=== PATIENT | male | born 1970 | race African-American/Black ===

== ENCOUNTER 2018-08-18 06:51 | Inpatient (IN) | payer OTHER, MEDICAID ==
[2018-08-18] MEDS ORDERED: EPINEPHrine RACEMIC INH 0.5 ML DEYVIAL IH ONE (06:55)
[2018-08-18] MEDS ORDERED: methylPREDNISolone SOD SUCC 125 MG/2 ML VIAL IVP ONE (06:56)
--- NOTE | 2018-08-18 07:01 | EDPHY ---
H & P Stated Complaint: Sore throat, diff swallowing, R ear and jaw pain Time Seen by Provider: 08/18/18 06:55 HPI/ROS: CHIEF COMPLAINT: Right jaw near pain HISTORY OF PRESENT ILLNESS: Patient is a 48-year-old homeless man who comes to the ER by ambulance complaining of right ear and jaw pain. He states that it began about 3 days ago. He has had subjective fevers and chills. He has not had any drainage. No recent dental pain. No vision changes. No headache. He states that it is difficult to swallow. He has had runny nose and sore throat. Severity: Moderate Modifying factors: None REVIEW OF SYSTEMS: Constitutional: See HPI EENTM: See HPI Respiratory: denies: cough, shortness of breath Cardiac: denies: chest pain, irregular heart rate, lightheadedness, palpitations Gastrointestinal/Abdominal: denies: abdominal pain, diarrhea, nausea, vomiting, blood streaked stools Genitourinary: denies: dysuria, frequency, hematuria, pain Musculoskeletal: denies: joint pain, muscle pain Skin: denies: lesions, rash, jaundice, bruising Neurological: denies: headache, numbness, paresthesia, tingling, dizziness, weakness Hematologic/Lymphatic: denies: blood clots, easy bleeding, easy bruising Immunologic/allergic: denies: HIV/AIDS, transplant 10 systems reviewed and negative except as noted EXAM: GENERAL: Well-appearing, well-nourished and in no acute distress. HEAD: Atraumatic, normocephalic. EYES: Pupils equal round and reactive to light, extraocular movements intact, sclera anicteric, conjunctiva are normal. ENT: TMs normal, nares slightly congested, enlarged edematous uvula. Gargle E voice. No visible exudate. No visible peritonsillar swelling. Moist mucous membranes. Handling secretions NECK: Normal range of motion, supple without lymphadenopathy or JVD. LUNGS: Breath sounds clear to auscultation bilaterally and equal. No wheezes rales or rhonchi. HEART: Regular rate and rhythm without murmurs, rubs or gallops. ABDOMEN: Soft, nontender, normoactive bowel sounds. No guarding, no rebound. No masses appreciated. BACK: No CVA tenderness, no spinal tenderness, step-offs or deformities EXTREMITIES: Normal range of motion, no pitting or edema. No clubbing or cyanosis. NEUROLOGICAL: Cranial nerves II through XII grossly intact. Normal speech, normal gait. 5/5 strength, normal movement in all extremities, normal sensation , normal reflexes PSYCH: Normal mood, normal affect. SKIN: Warm, dry, normal turgor, no visible rashes or lesions. Source: Patient Exam Limitations: No limitations - Personal History Current Tetanus/Diphtheria Vaccine: Yes Current Tetanus Diphtheria and Acellular Pertussis (TDAP): Yes - Medical/Surgical History Hx Asthma: No Hx Chronic Respiratory Disease: No Hx Diabetes: No Hx Cardiac Disease: No Hx Renal Disease: No Hx Cirrhosis: No Hx Alcoholism: No Hx HIV/AIDS: No Hx Splenectomy or Spleen Trauma: No Other PMH: type 2 DM - Family History Significant Family History: No pertinent family hx - Social History Smoking Status: Heavy smoker Alcohol Use: Sober Constitutional: Initial Vital Signs Temperature (C) 37.1 C 08/18/18 06:55 Heart Rate 99 08/18/18 06:55 Respiratory Rate 20 08/18/18 06:55 Blood Pressure 157/88 H 08/18/18 06:55 O2 Sat (%) 95 08/18/18 06:55 O2 Delivery Mode Room Air Allergies/Adverse Reactions: No Known Allergies Allergy (Verified 08/18/18 10:17) Home Medications: Medication Instructions Recorded NK [No Known Home Meds] 08/18/18 Medical Decision Making - Diagnostics Imaging: Discussed imaging studies w/ boiler service technician Radiologist ED Course/Re-evaluation: 9:30 a.m. no obvious fluid collections on CT scan. Patient's lab work is reassuring other than an elevated white blood cell count. He denies history of allergies and allergic reactions. I suspect that he has an infectious uvulitis. Minimal response to racemic epinephrine and Solu-Medrol. Will admit for further observation and consult ENT and possibly initiate antibiotics. 9:35 a.m. I spoke with Andre for [facility] ENT who recommends adding IV Decadron. Will also add Benadryl. He recommends holding off on antibiotics at this point. They will consult. Have paged hospitalist for admission. ENT is here and has performed scope of the patient's nasopharynx. Differential Diagnosis: Partial list of the Differential diagnosis considered include but were not limited to; uvulitis, dental infection, otitis media and although unlikely based on the history and physical exam, I also considered malignant otitis, facial abscess, epiglottitis. Critical Care Time: Critical care time spent by me, Dr. Patino exclusive with this patient was 35 minutes, exclusive of the PA time exclusive of procedures. The organ system that was at risk was airway and I gave IV fluids, antibiotics, medications, consultation and admission to prevent worsening of the patient's condition - Data Points Laboratory Results: Laboratory Results 08/19/18 03:59 08/19/18 03:59 Microbiology Results: MICROBIOLOGY 08/18/18 07:30 Blood Blood Culture - Preliminary 08/18/18 07:15 Blood Blood Culture - Preliminary Medications Given: Acetaminophen (Tylenol 650/20.3ml Oral Liquid) 650 mg PO Q4HRS PRN PRN Reason: Pain, Mild/Fever, Can Take PO Stop: 02/14/19 11:10 Last Admin: 08/18/18 22:44 Dose: 650 mg Enoxaparin Sodium (Lovenox) 40 mg SC DAILY [facility] Stop: 02/15/19 08:59 Last Admin: 08/19/18 08:57 Dose: Not Given Ampicillin Sodium/Sulbactam (Sodium 3 gm/ Sodium Chloride) 100 mls @ 200 mls/ hr IV Q6HRS JALEN PRN Reason: Protocol Stop: 09/17/18 11:59 Last Admin: 08/20/18 06:25 Dose: 100 mls Insulin Human Lispro (Humalog Lispro) 0 unit SC TIDMEAL JALEN PRN Reason: Protocol Stop: 02/14/19 11:59 Last Admin: 08/19/18 18:08 Dose: 6 unit Prednisone (Prednisone) 20 mg PO DAILY JALEN Stop: 02/15/19 11:29 Last Admin: 08/19/18 12:05 Dose: 20 mg Trazodone HCl (Trazodone) 50 mg PO HS PRN PRN Reason: Sleep/Insomnia Stop: 02/16/19 00:45 Last Admin: 08/20/18 01:31 Dose: 50 mg Discontinued Medications Dexamethasone (Decadron Injection) 10 mg IVP EDNOW ONE Stop: 08/18/18 09:35 Last Admin: 08/18/18 10:14 Dose: 10 mg Dexamethasone (Decadron Injection) 4 mg IVP Q6H JALEN Stop: 02/14/19 15:59 Last Admin: 08/19/18 08:57 Dose: 4 mg Diphenhydramine HCl (Benadryl Injection) 50 mg IVP EDNOW ONE Stop: 08/18/18 09:35 Last Admin: 08/18/18 10:14 Dose: 50 mg Epinephrine (S-2) 0.5 ml IH EDNOW ONE Stop: 08/18/18 06:56 Last Admin: 08/18/18 07:06 Dose: 0.5 ml Ampicillin Sodium/Sulbactam (Sodium 3 gm/ Sodium Chloride) 100 mls @ 200 mls/ hr IV EDNOW ONE PRN Reason: Protocol Stop: 08/18/18 10:10 Last Admin: 08/18/18 11:40 Dose: Not Given Sodium Chloride (Ns) 1,000 mls @ 100 mls/hr IV CONT JALEN Stop: 02/14/19 11:14 Last Admin: 08/18/18 23:59 Dose: 1,000 mls Insulin Human Lispro (Humalog Lispro) 8 unit SC ONCE ONE Stop: 08/18/18 22:46 Last Admin: 08/18/18 22:44 Dose: 8 units Methylprednisolone Sodium Succinate (Solu-Medrol) 125 mg IVP EDNOW ONE Stop: 08/18/18 06:57 Last Admin: 08/18/18 07:34 Dose: 125 mg Point of Care Test Results: Chemistry 08/19/18 08/18/18 08/18/18 07:59 21:04 17:47 POC Glucose 201 mg/dL H mg/dL 307 mg/dL H mg/dL 298 mg/dL H mg/dL (70-100) (70-100) (70-100) 08/18/18 11:36 POC Glucose 242 mg/dL H mg/dL (70-100) Departure - Departure Disposition: [facility] Acute Clinical Impression: Uvulitis, Pharyngeal swelling Condition: Fair
[2018-08-18 07:55] LABS: PLATELET COUNT 205 10^3/uL (150-400)
[2018-08-18 08:05] LABS: INR 1.17 (0.83-1.16); PROTIME(PATIENT) 14.4 SEC (12.0-15.0)
[2018-08-18] MEDS ORDERED: IOPAMIDOL (ISOVUE-300) 100 ML BTL ONE (08:39)
[2018-08-18] MEDS ORDERED: DEXAMETHASONE 10 MG/ML VIAL IVP ONE (09:34)
[2018-08-18] MEDS ORDERED: AMPICILLIN/SULBACTAM 3 GM in NS 100 ML IV ONE (09:41)
--- NOTE | 2018-08-18 10:14 | PDCONSULT ---
Cell Room Operator Note: S: This 48yo male presented to ED with 3 days of right ear and throat pain. Pain with swallowing. States he has some increased difficulty breathing. Subjective fevers and chills. He thought he had an ear infection. No recent dental pain. No vision changes. No headache. Has had tetanus vaccine. O: Pt laying down in bed resting. Sits up without difficulty. NAD. Voice is hoarse, no stridor. Right submandibular edema, tender to palpation under angle of mandible down right ant neck. tongue was normal, good mvmt. Poor dentition. Uvula was edematous, pink in color. Ears, TM normal bilat. No fb in canal. Right canal slightly erythematous proximally. 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 Marked swelling to right pharynx and right arytenoid. Epiglottis was normal in color and size, omega shaped. Pooling of secretions throughout pharynx. A/P: Pt with marked peripharyngeal edema R>L, able to advance scope past swelling to visualize top of larynx. Vocal cords were normal in appearance and mvmt. Right arytenoid approx 2x normal size. No other masses or tumors. No clear abscess on CT. Ear pain is likely referred pain from throat. Recommend abx with good gram neg and anaerobic coverage. Dexamethasone 12mg q8h Case discussed with Dr Jacob Clark ENT
[2018-08-18] MEDS ORDERED: D50W 25 GM/50 ML SYR IVP PRN (11:09)
[2018-08-18] MEDS ORDERED: ONDANSETRON 4 MG/2 ML VIAL IVP PRN (11:11)
[2018-08-18] MEDS ORDERED: ONDANSETRON DISINTEGRATING 4 MG TAB PO PRN (11:11)
[2018-08-18] MEDS ORDERED: HYDROmorphONE/DILAUDID 1 MG/ML INJ IVP PRN (11:11)
[2018-08-18] MEDS ORDERED: ACETAMINOPHEN 325 MG TAB PO PRN (11:11)
[2018-08-18] MEDS: NS 1,000 ML IV SCH ×2 (11:40→23:59)
[2018-08-18] MEDS: AMPICILLIN/SULBACTAM 3 GM in NS 100 ML IV SCH ×3 (11:40→23:59)
[2018-08-18] MEDS: INSULIN LISPRO 100 UNIT/ML SC SCH ×2 (11:49→17:53)
--- NOTE | 2018-08-18 12:06 | GHP ---
[f rep st] HISTORY AND PHYSICAL DATE OF ADMISSION: 08/18/2018 HISTORY OF PRESENT ILLNESS: The patient is a 48-year-old gentleman with history of type 2 diabetes, who presents with several days of sore throat and some fevers or chills. He lives in [place] but was up here for what sounds like possibly a work release program and had difficulty swallowing. So he pr esented to the emergency department where neck CT revealed some prevertebral edema. He has had a lit tle bit of difficulty with his own secretions, and he has a spit cup next to the bed. He has not had hematemesis or hemoptysis. Has also had some right ear and jaw pain. He has no stridor. No air hunger. No respiratory distress. No sputum. Scattered fever and chills as mentioned previously. REVIEW OF SYSTEMS: Complete 10-point review of systems conducted, negative except as noted in the HP I. PAST MEDICAL HISTORY: Type 2 diabetes. It sounds like he does not follow it particularly carefully. He takes metformin. SOCIAL HISTORY: He does smoke cigarettes. Rare alcohol. He is listed as possibly homeless. FAMILY HISTORY: Notable for diabetes. ALLERGIES: No known drug allergies. HOME MEDICATIONS: Metformin. PHYSICAL EXAMINATION: VITAL SIGNS: Temp 37.1, blood pressure 157/88, pulse 99, breathing 20 times a minute, and 95% on room air. GENERAL: No acute distress. HEENT: Sclerae are anicteric. Orophary nx: He is crowded. He has a big tongue, crowded oropharynx. He has a hot potato voice. He was sco ped by ENT consult in the emergency department which revealed peripharyngeal edema, right greater bonny n left. Top of the larynx showed vocal cords are normal appearance and movement. NECK: Supple with out lymphadenopathy or JVD. LUNGS: Clear to auscultation bilaterally. HEART: S1, S2. Not tachyca rdic. ABDOMEN: Soft, nontender, nondistended. LOWER EXTREMITIES: Without edema. Calves are nonte nder. SKIN: Without rash. NEUROLOGIC: Exam is nonfocal. LABORATORY DATA: White count 14.5, hematocrit 47.8, platelets are 205,000. INR is 1.17. Venous lac yee is 1.4. Sodium 137, potassium 4.3, chloride 101, bicarb 24, BUN 12, creatinine 1.0, glucose 210 , bilirubin 0.9. His influenza A and B negative. Group A strep screen is negative. The DNA is pend ing. CT images reviewed, interpreted by me, show extensive prevertebral edema through the caudal base of t he adenoids with posterior margin of the hypopharynx with nodular enlargement of the uvula, narrowing the base of the posterior oropharyngeal airway, as well as cervical lymphadenitis. I discussed the case with Dr. Aj Patino. ASSESSMENT AND PLAN: A 48-year-old gentleman presents with prevertebral edema, likely secondary to v iral versus bacterial sore throat. 1. Prevertebral edema with narrowing of the oropharynx and inability to handle secretions. He recei dahlia steroids and Unasyn in the emergency department. I will continue these. He has been seen by Ear , Nose, and Throat, who I assume will follow the patient. He is not in respiratory distress at this time. I made it clear that he should speak up should he have difficulty with respiratory distress. 2. Diabetes. This appears to be poorly controlled. We will check a hemoglobin A1c. Place him on a lispro sliding scale. 3. Hypertension, present on admission. Will follow. 4. Question airway obstruction. He has radiographic evidence of a narrowed airway. However, he sparks s not appear to be in any respiratory distress. 5. Prophylaxis: Low molecular heparin. 6. Disposition: Intensive Care Unit. 40 minutes critical care. /[id number]/MODL
[2018-08-18] MEDS: DEXAMETHASONE 4 MG/ML VIAL IVP SCH ×2 (15:49→22:44)
[2018-08-18 17:24] LABS: GROUP A STREP DNA (THROAT) POSITIVE (NEGATIVE)
[2018-08-18] MEDS ORDERED: ACETAMINOPHEN 650 MG/20.3 ML UDCUP PO PRN (21:00)
[2018-08-18] MEDS ORDERED: INSULIN LISPRO 100 UNIT/ML SC ONE (22:45)
[2018-08-19] MEDS: DEXAMETHASONE 4 MG/ML VIAL IVP SCH ×2 (03:54→08:57)
[2018-08-19 05:56] LABS: PLATELET COUNT 220 10^3/uL (150-400)
[2018-08-19] MEDS: AMPICILLIN/SULBACTAM 3 GM in NS 100 ML IV SCH ×3 (06:13→18:10)
--- NOTE | 2018-08-19 08:01 | SOAPPROG ---
SOAP Progress Note Assessment/Plan: A/P: Pt with improving symptoms of dysphagia, hoarseness and throat pain. States he feels much better than yesterday. Reports pain has almost completely resolved. Tolerating PO. Ok to D/c from ENT perspective. Would d/c him on abx and 4 more days of Decadron 8mg x 2 days, 4mg x 2 days. 08/19/18 08:01 08/19/18 11:24 08/19/18 11:32 08/19/18 11:34 Subjective: S: This 48yo male presented to ED with 3 days of right ear and throat pain. Pain with swallowing. Found to have peripharyngeal edema. Doing great today. Tolerating PO food and liquid. Throat pain is almost completely resolved. No dysphagia. No fevers chills. No ear pain. No hoarseness. No difficulty breathing. Objective: Vital Signs Temp Pulse Resp BP Pulse Ox 36.5 C 79 18 119/89 H 96 08/19/18 04:00 08/19/18 06:00 08/19/18 06:00 08/19/18 06:00 08/19/18 06:00 Laboratory Results 08/19/18 03:59 08/19/18 03:59 08/18/18 08/19/18 08/20/18 05:59 05:59 05:59 Intake Total 3205 Output Total 2 Balance 3203 PT 14.4 SEC (12.0-15.0) 08/18/18 07:30 INR 1.17 (0.83-1.16) H 08/18/18 07:30 O: Pt sitting comfortably in chair watching TV. Sits up without difficulty. NAD. No hoarseness or stridor. Improved right submandibular edema, Not tender to palpation under angle of mandible or neck. tongue was normal, good mvmt. No sublingual edema not tender to palpation. Poor dentition. Uvula is now normal appearing, pink in color. - Pending Discharge Pending Discharge Within 48 Hours: Yes Pending Discharge Date: 08/21/18 Pending Discharge Time: 11:00 ICD10 Worksheet Patient Problems: Problems Problem Status Onset Pharyngeal swelling Acute Uvulitis Acute
[2018-08-19] MEDS: INSULIN LISPRO 100 UNIT/ML SC SCH ×3 (08:56→18:08)
[2018-08-19] MEDS: ENOXAPARIN 40 MG/0.4 ML SYR SC SCH (08:57)
--- NOTE | 2018-08-19 11:26 | HOSPPROG ---
Hospitalist Progress Note Assessment/Plan: 48 yo M w edematous retropharynx and uvula, likely 2/2 strep airway: much improved back off on steroidss continue abx strep pharyngitis: continue unasyn DM: a1c 6.6 pain: improved dispo: to floor, change to inpt Subjective: feeling much better. eating. voice has normalized. d/w dr hernandez Objective: Vital Signs Temp Pulse Resp BP Pulse Ox 36.9 C 74 13 105/74 97 08/19/18 08:00 08/19/18 10:00 08/19/18 10:00 08/19/18 10:00 08/19/18 10:00 Laboratory Results 08/19/18 03:59 08/19/18 03:59 08/18/18 08/19/18 08/20/18 05:59 05:59 05:59 Intake Total 3205 Output Total 2 Balance 3203 PT 14.4 SEC (12.0-15.0) 08/18/18 07:30 INR 1.17 (0.83-1.16) H 08/18/18 07:30 - Physical Exam Constitutional: no apparent distress, appears nourished Eyes: PERRL, anicteric sclera Ears, Nose, Mouth, Throat: moist mucous membranes, hearing normal Cardiovascular: regular rate and rhythym, no murmur, rub, or gallop Respiratory: no respiratory distress, no rales or rhonchi Gastrointestinal: normoactive bowel sounds, soft, non-tender abdomen Genitourinary: no bladder fullness, No duke in urethra Skin: warm, normal color Musculoskeletal: full muscle strength ICD10 Worksheet Patient Problems: Problems Problem Status Onset Pharyngeal swelling Acute Uvulitis Acute
[2018-08-19] MEDS: predniSONE 20 MG TAB PO SCH (12:05)
--- NOTE | 2018-08-19 15:03 | ASMTCMCOM ---
CM Note CM Note Notes: Patient admitted with Strep Pharyngitis and Uvulitis. Met with patient to discuss discharge needs. Patient is currently homeless and states he was part of the [employer] Work Program - spoke with the manager night of the Ready to Work Program at [facility], she does not have any record of patient. It is unclear as to whether patient is newly homeless to [place]. Spoke with Dank at the [facility], patient did stay with them on 08/15. He is not able to return until he completes Coordinated Entry. Met with patient and explained the process for Coordinated Entry, he was encouraged to go on d/c. Patient hopes to get a bed at the half-way eventually. [facility] appt was scheduled for next Wednesday, 08/24, details listed in discharge instructions in addition to the CE information. RT spoke to CM about the possible use of Cpap at half-way. The half-way has accommodated Cpap machines in the past, however, patient needs to have a reserved bed at the half-way as outlets are limited. CM encouraged patient to complete CE, attend his [facility] f/u in order to take next steps for Cpap machine. Patient uses the bus system and will likely take bus on d/c. CM will follow. Plan: Independent Date Signed: 08/19/2018 03:02 PM Electronically Signed By:Rosi Titus RN
--- NOTE | 2018-08-19 16:01 | PDMN ---
Medical Necessity Medical necessity: Change to IP, as of 08/19/18, per MD & MCG MG-SIC Systemic or Infectious Condition; los >2 mn for ongoing management of edematous retropharynx & uvula secondary to strep pharyngitis; requiring further ICU monitoring, IV abx, tapering of steroids & supportive care; hx diabetes
[2018-08-20] MEDS: AMPICILLIN/SULBACTAM 3 GM in NS 100 ML IV SCH ×3 (00:14→11:56)
[2018-08-20] MEDS ORDERED: traZODone 50 MG TAB PO PRN (00:46)
[2018-08-20 07:47] VITALS: BP 132/91
[2018-08-20] MEDS: predniSONE 20 MG TAB PO SCH (08:35)
[2018-08-20] MEDS: ENOXAPARIN 40 MG/0.4 ML SYR SC SCH (08:35)
[2018-08-20] MEDS: INSULIN LISPRO 100 UNIT/ML SC SCH ×2 (08:36→12:11)
[2018-08-20] MEDS ORDERED: PNEUMOCOCCAL 0.5ML VACCINE VIAL (PNEUMOVAX 23) IM ONE (10:38)
--- NOTE | 2018-08-20 12:25 | HOSPPROG ---
Hospitalist Progress Note Assessment/Plan: 48 yo M w edematous retropharynx and uvula, likely 2/2 strep airway: much improved back off on steroids continue abx strep pharyngitis: continue unasyn DM: a1c 6.6 pain: improved dispo: home today > 30 minutes on dc Subjective: ate omelette and sausage for breakfast. no dyspnea Objective: Vital Signs Temp Pulse Resp BP Pulse Ox 36.6 C 84 16 132/91 H 95 08/20/18 07:46 08/20/18 07:46 08/20/18 07:46 08/20/18 07:46 08/20/18 07:46 08/19/18 08/20/18 08/21/18 05:59 05:59 06:59 Intake Total 1110 Balance 1110 PT 14.4 SEC (12.0-15.0) 08/18/18 07:30 INR 1.17 (0.83-1.16) H 08/18/18 07:30 - Physical Exam Constitutional: no apparent distress, appears nourished Eyes: PERRL, anicteric sclera Ears, Nose, Mouth, Throat: moist mucous membranes, hearing normal, other ( erythema and edema in back of o/p. no stridor, controlling secretions, eating) Respiratory: no respiratory distress, no rales or rhonchi Gastrointestinal: normoactive bowel sounds, soft, non-tender abdomen Genitourinary: no bladder fullness, No duke in urethra Skin: warm, normal color Musculoskeletal: full muscle strength Neurologic: AAOx3 ICD10 Worksheet Patient Problems: Problems Problem Status Onset Pharyngeal swelling Acute Uvulitis Acute
--- NOTE | 2018-08-21 12:05 | GDS ---
[f rep st] DISCHARGE SUMMARY DISCHARGE DIAGNOSES: 1. Pharyngitis, likely streptococcus. 2. Large uvula. 3. Retropharyngeal swelling. Please see admission history and physical by Dr. Fernando Donato. The patient presented to hospital o n the afternoon of the with fever, chills, and dysphagia. CT showed thickened retropharynx with no abscess. He was seen by ENT who performed bedside laryngoscopy showing normal airway but some ret ropharyngeal swelling. He received dexamethasone, Unasyn. Strep DNA was positive. Blood cultures n egative. Afebrile while here without sepsis. After 2 days in the hospital, he was eating and drinki ng fine with no stridor. No dyspnea. He is discharged home with a course of amoxicillin and no ster oids. /[id number]/MODL
== END 2018-08-20 15:28 | disposition home or self-care (01) | DRG 153 ==
LOC: F2N 10:48 → OBSVTOIN 08-19 11:27 → F2W 08-19 16:45
PROVIDERS: ADMIT Internal Medicine; ATTEND Internal Medicine
DX: J02.0 Streptococcal pharyngitis (principal); K13.79 Other lesions of oral mucosa; E11.9 Type 2 diabetes mellitus without complications; Z23 Encounter for immunization; Z59.0 Homelessness; Z79.4 Long term (current) use of insulin; F17.210 Nicotine dependence, cigarettes, uncomplicated
CPT/HCPCS: 96374; G0009; G0378; J0295; J1100; J1200; J1650; J1815; J2930; J7512; Q9967